=== PATIENT | female | born 1975 | race Caucasian/White ===

== ENCOUNTER 2020-10-28 16:57 | Emergency (ER) | payer OTHER, MEDICARE ==
[~2020-10-28 16:57] MED LIST: Iopamidol 370 76% 100 ML VIAL ONE
[2020-10-28 18:27] LABS: Anion Gap 13 mmol/L (10-20); BUN (Urea Nitrogen) 12 mg/dL (7.0-18.7); Calc. Creatinine Clearance 0 mL/min (70-130); Calcium 9.1 mg/dL (7.8-10.44); Carbon Dioxide 23 mmol/L (22-29); Chloride 104 mmol/L (98-107); Glucose 127 mg/dL (70-105); Potassium 3.9 mmol/L (3.5-5.1); Sodium 136 mmol/L (136-145)
[2020-10-28] MEDS ORDERED: predniSONE 20 MG TAB ONE (19:33)
== END 2020-10-28 19:39 | disposition home or self-care (01) ==
LOC: NAV ERS 16:57
DX: M94.0 Chondrocostal junction syndrome [Tietze] (principal); E03.9 Hypothyroidism, unspecified; Z87.891 Personal history of nicotine dependence; Z79.899 Other long term (current) drug therapy
CPT/HCPCS: 71275; 80048; 85379; J7512; Q9967

== ENCOUNTER 2021-12-09 23:22 | Emergency (ER) | payer OTHER, MEDICARE ==
[2021-12-09] MEDS ORDERED: Ibuprofen 200 MG TAB ONE (23:34)
[2021-12-09] MEDS ORDERED: Ondansetron ODT 4 MG TAB ONE (23:39)
== END 2021-12-10 00:05 | disposition home or self-care (01) ==
LOC: NAV ERS 23:22
DX: J06.9 Acute upper respiratory infection, unspecified (principal); B34.9 Viral infection, unspecified; Z20.822 Contact with and (suspected) exposure to COVID-19; E03.9 Hypothyroidism, unspecified; E78.00 Pure hypercholesterolemia, unspecified; R73.03 Prediabetes; Z87.891 Personal history of nicotine dependence; Z79.899 Other long term (current) drug therapy
CPT/HCPCS: 99284; Q0162; U0003; U0005

== ENCOUNTER 2023-07-23 17:34 | Emergency (ER) | payer OTHER, MEDICARE ==
[2023-07-23 18:53] LABS: #Eosinphils 0.1 thou/uL (0.0-0.7); #Lymphocytes 3.6 thou/uL (1.20-3.40); #Monocytes 0.6 thou/uL (0.11-0.59); #Neutrophils 4.2 thou/uL (1.40-6.50); %Basophils 0.6 % (0.0-1.0); %Eosinophils 1.3 % (0.0-10.0); %Monocytes 7.5 % (0.0-10.0); %Neutrophils 48.6 % (42.0-75.0); Hematocrit 40.9 % (36.0-47.0); Hemoglobin 13.7 g/dL (12.0-16.0); Mean Corpuscular HGB CONC 33.6 g/dL (32.0-36.0); Mean Corpuscular Hemoglobin 32.2 pg (27.0-31.0); Mean Platelet Volume 7.1 fL (7.4-10.4); Platelet Count 280 10x3/uL (130-400); RBC Distribution Width 11.2 % (11.5-14.5); Red Blood Cell (RBC) Count 4.26 mill/uL (4.20-5.40); White Blood Cell (WBC) Count 8.6 10x3/uL (4.8-10.8)
[2023-07-23 19:12] LABS: Prothrombin Time 13.2 sec (12.0-14.7)
[2023-07-23 19:13] LABS: PTT 25.5 sec (22.9-36.1)
[2023-07-23 19:16] LABS: D-Dimer Test Less than 0.27 mcg/mL (0.27-0.43)
[2023-07-23 19:21] LABS: ALT (SGPT) 17 U/L (8-55); AST (SGOT) 14 U/L (5-34); Albumin 4.4 g/dL (3.5-5.0); Alkaline Phosphatase 76 U/L (40-110); Anion Gap 11 mmol/L (10-20); BUN (Urea Nitrogen) 12 mg/dL (7.0-18.7); Bilirubin, Total 0.6 mg/dL (0.2-1.2); Calc. Creatinine Clearance 0 mL/min (70-130); Calcium 9.1 mg/dL (7.8-10.44); Carbon Dioxide 28 mmol/L (22-29); Chloride 105 mmol/L (98-107); Estimated GFR 90; Globulin 3.1 g/dL (2.4-3.5); Glucose 108 mg/dL (70-105); Protein, Total 7.5 g/dL (6.0-8.3); Sodium 140 mmol/L (136-145)
== END 2023-07-23 19:49 | disposition home or self-care (01) ==
LOC: NAV ERS 17:34
DX: I80.02 Phlebitis and thrombophlebitis of superficial vessels of left lower extremity (principal); I87.2 Venous insufficiency (chronic) (peripheral); E11.9 Type 2 diabetes mellitus without complications; E78.00 Pure hypercholesterolemia, unspecified; Z87.891 Personal history of nicotine dependence; Z79.899 Other long term (current) drug therapy
CPT/HCPCS: 36415; 80053; 85025; 85379; 85610; 85730; 99283

== ENCOUNTER 2024-01-26 17:40 | Emergency (ER) | payer OTHER, MEDICARE ==
[2024-01-26 19:36] LABS: SARS-CoV-2 E Target Negative; SARS-CoV-2 N2 Target Negative; SARS-CoV-2 NAA Rapid Test Not Detected (NotDetected); SARS-CoV-2 RdRP gene Negative
== END 2024-01-26 20:05 | disposition home or self-care (01) ==
LOC: NAV ERS 17:40
DX: Z20.822 Contact with and (suspected) exposure to COVID-19 (principal); E11.9 Type 2 diabetes mellitus without complications; Z87.891 Personal history of nicotine dependence
CPT/HCPCS: 99283; U0002

== ENCOUNTER 2024-05-16 12:55 | Emergency (ER) | payer OTHER, MEDICARE ==
[2024-05-16] MEDS ORDERED: Acetaminophen 325 MG TAB ONE (13:59)
== END 2024-05-16 15:39 | disposition short-term general hospital (02) ==
LOC: NAV ERS 12:55
DX: M54.50 Low back pain, unspecified (principal); R32 Unspecified urinary incontinence; G89.29 Other chronic pain; E11.9 Type 2 diabetes mellitus without complications; E78.00 Pure hypercholesterolemia, unspecified; Z87.891 Personal history of nicotine dependence; Z79.899 Other long term (current) drug therapy
CPT/HCPCS: 99284